=== PATIENT | female | born 1950 | race Caucasian/White ===

== ENCOUNTER 2017-04-01 13:56 | Emergency (ER) | payer OTHER ==
[~2017-04-01] VITALS: Ht 167.6 cm; Wt 72.6 kg
[2017-04-01 13:56] VITALS: BP_SYST 145
--- NOTE | 2017-04-01 14:05 | NUR ---
Patient triaged and placed in waiting room. VSS and patient appears in no acute distress at this time. Accompanied by SELF, awaiting available bed, and MD notified of need for MSE.
--- NOTE | 2017-04-01 14:35 | NUR ---
Pt placed to ER [facility] bed. Pt states that she feels like something is lodged in the right side of her throat after eating left over shrimp 4 days ago. Pt states that she's drank alot of fluids to try to flush it down, but she still feels it. Airway patent, pt denies SOB, BBS clear. Pt states that she experienced similar symptoms about 20 years ago.
--- NOTE | 2017-04-01 14:52 | NUR ---
Dr. Reyes at bedside to assess pt.
--- NOTE | 2017-04-01 15:16 | NUR ---
Patient given written and verbal discharge instructions and verbalizes understanding. ER MD discussed with patient the results and treatment provided. Patient in stable condition. ID arm band removed. No Rx given given. Patient educated on pain management and to follow up with PMD. Pain Scale 0/10. Opportunity for questions provided and answered.
== END 2017-04-01 15:16 | disposition home or self-care (01) ==
LOC: SED 14:59
DX: S27.818A Other injury of esophagus (thoracic part), initial encounter (principal); K21.9 Gastro-esophageal reflux disease without esophagitis; Z88.1 Allergy status to other antibiotic agents; Z88.5 Allergy status to narcotic agent; Z88.6 Allergy status to analgesic agent; X58.XXXA Exposure to other specified factors, initial encounter; Y93.89 Activity, other specified; Y92.89 Other specified places as the place of occurrence of the external cause; Y99.8 Other external cause status
CPT/HCPCS: 99282